=== PATIENT | male | born 1975 | race Caucasian/White ===

== ENCOUNTER 2022-01-22 10:06 | Emergency (ER) | payer OTHER ==
[2022-01-22] MEDS ORDERED: Sodium Chloride 0.9% 10 ML Syringe FLUSH PRN (11:11)
[2022-01-22] MEDS ORDERED: Sodium Chloride 0.9% 1,000 ML IV STA (11:25)
[2022-01-22 11:40] LABS: ESTIMATED GFR 83 mL/min (>60)
[2022-01-22] MEDS ORDERED: Potassium Chloride 20 MEQ Tab.ER PO ONE (15:12)
== END 2022-01-22 15:30 | disposition home or self-care (01) ==
LOC: JD.ED 10:06
DX: R42 Dizziness and giddiness (principal); E87.6 Hypokalemia; F41.9 Anxiety disorder, unspecified; Z88.0 Allergy status to penicillin; Z20.822 Contact with and (suspected) exposure to COVID-19
CPT/HCPCS: 36415; 70450; 80053; 83735; 85025; 86140; 87635; 96360; 96361; 99284; A9270; J3490; J7030; U0002